=== PATIENT | female | born 1950 | race Hispanic/Latino ===

== ENCOUNTER 2020-05-03 09:31 | Inpatient (IN) | payer OTHER, MEDICARE ==
[~2020-05-03] VITALS: Ht 154.9 cm; Wt 77.7 kg
[2020-05-03] MEDS ORDERED: METHYLPREDNISOLONE SOD SUCC 40MG/ML 1ML ONE (10:13)
[2020-05-03] MEDS ORDERED: CEFTRIAXONE SODIUM 2 GM VIAL ONE (10:13)
[2020-05-03] MEDS ORDERED: SODIUM CHLORIDE 0.9% 50 ML IV ONE (10:14)
[2020-05-03] MEDS ORDERED: ACETAMINOPHEN EXTRA STRENGTH 500 MG TABLET ONE (10:14)
[2020-05-03 10:37] LABS: BASOPHILS % (AUTO) 0.2 % (0.0-5.0); HEMATOCRIT 36.4 % (36-48); LYMPHOCYTES % (AUTO) 5.1 % (21.0-51.0); MEAN CORPUSCULAR HGB CONC 32.1 g/dL (32.0-36.0); MEAN CORPUSCULAR VOLUME 83.9 fL (79-99); MONOCYTES % (AUTO) 4.2 % (3.0-13.0); NEUTROPHILS % (AUTO) 89.9 % (40.0-77.0); PLATELET COUNT (AUTO) 98 K/uL (130-400); RED BLOOD CELL COUNT(AUTO) 4.34 MIL/uL (4.00-5.50); RED CELL DISTRIBUTION WIDTH 14.6 % (11.0-15.5); WHITE BLOOD COUNT (AUTO) 6.3 K/uL (4.8-10.8)
[2020-05-03 10:47] LABS: CARBON DIOXIDE 23 mmol/L (21-32); CHLORIDE 104 mmol/L (101-111); CREATININE 0.9 mg/dL (0.5-1.5); GLOMERULAR FILTR. RATE CALC 65 mL/min (>60); GLUCOSE,RANDOM 187 mg/dL (70-105); POTASSIUM 3.9 mmol/L (3.5-5.1); SODIUM SERUM 139 mmol/L (136-145); UREA NITROGEN, BLOOD 10 mg/dL (7-18)
[2020-05-03 10:49] LABS: INR 1.01 (0.85-1.15); PARTIAL THROMBOPLASTIN TIME 31.7 SEC (26.3-35.5); PROTHROMBIN TIME 10.9 SEC (9.6-11.6)
[2020-05-03 11:08] LABS: ALANINE AMINOTRANSFERASE 29 U/L (12-78); ALBUMIN 2.8 g/dL (3.5-5.0); ASPARTATE AMINOTRANSFERASE 46 U/L (10-37); BILIRUBIN,TOTAL 0.6 mg/dL (0.2-1.0); CREATINE KINASE, TOTAL 124 U/L (21-232); MYOGLOBIN 118 ng/mL (10-92); TOTAL PROTEIN, SERUM 6.8 g/dL (6.0-8.3); TROPONIN I < 0.04 ng/mL (0.00-0.06)
[2020-05-03] MEDS ORDERED: ENOXAPARIN SODIUM 80 MG/0.8 ML SQ ONE ×2 (12:17→21:33)
[2020-05-03 15:18] LABS: APPEARANCE,URINE Cloudy (CLEAR); BILIRUBIN,URINE Negative (NEGATIVE); COLOR,URINE Yellow (YELLOW); GLUCOSE, URINE (UA) Negative (NEGATIVE); KETONES,URINE Trace mg/dL (NEGATIVE); LEUKOCYTE ESTERASE ,URINE Large (NEGATIVE); NITRATE,URINE Negative (NEGATIVE); OCCULT BLOOD,URINE Moderate (NEGATIVE); PROTEIN,URINE Trace mg/dL (NEGATIVE); UROBILINOGEN,URINE 0.2 mg/dL (0.2-1.0)
[2020-05-03 15:25] LABS: BACTERIA,URINE Few /HPF (None Seen); YEAST,URINE BUDDING Rare /HPF (None Seen)
[2020-05-03 15:26] LABS: SQUAMOUS EPITHELIAL CELL,UR Few /HPF (0-2); TRANSITIONAL EPI CELLS,URINE Few /HPF (None Seen)
[2020-05-03] MEDS ORDERED: ENOXAPARIN SODIUM 100 MG/1 ML SQ ONE (15:41)
[2020-05-03] MEDS ORDERED: IOHEXOL 350 MG/ML 100ML INFUS..BTL IV ONE (16:00)
[2020-05-03 16:10] LABS: ABG BASE EXCESS -2.7 mmol/L (-2.0-3.0); ABG HCO3 20.4 mmol/L (21.0-28.0); ABG OXYGEN SATURATION 98.1 % (95.0-99.0); ABG PCO2 31 mmHg (32-45)
[2020-05-03] MEDS ORDERED: ACETAMINOPHEN 325 MG TAB PO PRN ×2 (16:15)
[2020-05-03] MEDS ORDERED: HYDROCODONE/ACETAMINOPHEN 5/325 MG TAB PO PRN (16:15)
[2020-05-03] MEDS ORDERED: GUAIFENESIN-DM 200/20 MG 10 ML PO PRN (16:15)
[2020-05-03] MEDS ORDERED: LACTULOSE 20 GM/30 ML UDCUP PO PRN (16:15)
[2020-05-03] MEDS ORDERED: HYDRALAZINE HCL 20 MG/ML VIAL IV PRN (16:15)
[2020-05-03] MEDS ORDERED: ALPRAZOLAM 0.25 MG TABLET PO PRN (16:15)
[2020-05-03] MEDS ORDERED: METOPROLOL TARTRATE 1 MG/ML 5ML VIAL IV PRN (16:15)
[2020-05-03] MEDS: INSULIN HUMULIN R 100 UNIT/ML 3ML SQ SCH (16:30)
[2020-05-03] MEDS ORDERED: ERGOCALCIFEROL (VITAMIN D2) 50,000 UNIT CAPSULE PO SCH (20:00)
[2020-05-03] MEDS ORDERED: FUROSEMIDE 10 MG/ML 2ML VIAL IV SCH (20:00)
--- NOTE | 2020-05-03 20:17 | NUR ---
INITIAL SW spoke to patient's daughter, Mary Lou Gould, [phone]. Patient lost her spouse to COVID 19 on 04/29/2020. Patient moved in with daughter, Kimberlee Infante, [phone]. No home health but does have PHC with [facility] X 26 hours. Daughter Mary Lou is provider. DME: glucometer(insulin) rollator, cane, shower chair. Nazanin was independent prior to hospitalization and drove as per family. PCP is Dr. Lina Martinez. Pharmacy is [facility] in [place]. DCP is home. Addendum: 05/03/20 at 2020 by LEOPOLDO MARTINEZ Amended: Links added.
[2020-05-03] MEDS: FAMOTIDINE 20MG TAB 20 MG TAB PO SCH (21:00)
[2020-05-03] MEDS: ENOXAPARIN SODIUM 80 MG/0.8 ML SQ SCH (21:00)
[2020-05-03] MEDS ORDERED: FUROSEMIDE 10 MG/ML 2ML VIAL ONE (21:33)
[2020-05-03] MEDS ORDERED: FAMOTIDINE/PF 20 MG/2 ML VIAL IV ONE (21:34)
[2020-05-03] MEDS ORDERED: INSULIN HUMULIN R 100 UNIT/ML 3ML ONE (22:57)
[2020-05-04 04:36] LABS: BASOPHILS % (AUTO) 0.1 % (0.0-5.0); HEMATOCRIT 37.4 % (36-48); LYMPHOCYTES % (AUTO) 9.3 % (21.0-51.0); MEAN CORPUSCULAR HEMOGLOBIN 26.9 pg (27.0-33.0); MEAN CORPUSCULAR HGB CONC 32.1 g/dL (32.0-36.0); MEAN CORPUSCULAR VOLUME 83.9 fL (79-99); MONOCYTES % (AUTO) 3.6 % (3.0-13.0); NEUTROPHILS % (AUTO) 86.6 % (40.0-77.0); PLATELET COUNT (AUTO) 115 K/uL (130-400); RED BLOOD CELL COUNT(AUTO) 4.46 MIL/uL (4.00-5.50); RED CELL DISTRIBUTION WIDTH 14.5 % (11.0-15.5); WHITE BLOOD COUNT (AUTO) 7.2 K/uL (4.8-10.8)
[2020-05-04 04:46] LABS: POTASSIUM 3.7 mmol/L (3.5-5.1)
[2020-05-04 08:34] LABS: ABG BASE EXCESS 4.2 mmol/L (-2.0-3.0); ABG HCO3 27.9 mmol/L (21.0-28.0); ABG OXYGEN SATURATION 93.9 % (95.0-99.0); ABG PCO2 39 mmHg (32-45)
[2020-05-04] MEDS ORDERED: ENOXAPARIN SODIUM 80 MG/0.8 ML SQ ONE ×2 (08:40→22:11)
[2020-05-04] MEDS ORDERED: DEXAMETHASONE SOD PHOSPHATE 10MG/ML 1ML VIAL ONE (08:41)
[2020-05-04] MEDS ORDERED: FUROSEMIDE 10 MG/ML 2ML VIAL ONE ×2 (08:41→17:21)
[2020-05-04] MEDS ORDERED: FAMOTIDINE/PF 20 MG/2 ML VIAL IV ONE (08:42)
[2020-05-04] MEDS ORDERED: ASCORBIC ACID 500 MG TAB ONE (08:43)
[2020-05-04] MEDS ORDERED: ZINC SULFATE 220 CAPSULE ONE (08:43)
[2020-05-04] MEDS ORDERED: GUAIFENESIN-DM 200/20 MG 10 ML ONE (08:43)
[2020-05-04] MEDS: ZINC SULFATE 220 CAPSULE PO SCH (09:00)
[2020-05-04] MEDS: ASCORBIC ACID 500 MG TAB PO SCH (09:00)
[2020-05-04] MEDS: DEXAMETHASONE SOD PHOSPHATE 4 MG/ML 1ML VIAL IVP SCH (09:00)
[2020-05-04] MEDS ORDERED: INSULIN HUMULIN R 100 UNIT/ML 3ML ONE ×3 (12:25→22:12)
[2020-05-04] MEDS ORDERED: LOPERAMIDE HCL 2 MG CAP PO ONE (12:35)
[2020-05-04] MEDS ORDERED: ACETAMINOPHEN 325 MG TAB ONE (12:35)
[2020-05-04] MEDS: PHARMACY COMMUNICATION MISC SCH ×3 (12:45→20:45)
[2020-05-05] MEDS ORDERED: LOPERAMIDE HCL 2 MG CAP PO ONE (00:22)
[2020-05-05 04:43] LABS: HEMATOCRIT 38.1 % (36-48); LYMPHOCYTES % (AUTO) 11.1 % (21.0-51.0); MEAN CORPUSCULAR HEMOGLOBIN 26.9 pg (27.0-33.0); MEAN CORPUSCULAR VOLUME 84.1 fL (79-99); MONOCYTES % (AUTO) 5.2 % (3.0-13.0); NEUTROPHILS % (AUTO) 83.2 % (40.0-77.0); PLATELET COUNT (AUTO) 142 K/uL (130-400); RED BLOOD CELL COUNT(AUTO) 4.53 MIL/uL (4.00-5.50); RED CELL DISTRIBUTION WIDTH 14.2 % (11.0-15.5); WHITE BLOOD COUNT (AUTO) 5.6 K/uL (4.8-10.8)
[2020-05-05] MEDS: PHARMACY COMMUNICATION MISC SCH ×5 (04:45→20:45)
[2020-05-05 04:47] LABS: HEMOGLOBIN A1C 8.5 % (4.0-6.0)
[2020-05-05 05:00] LABS: CREATININE 0.9 mg/dL (0.5-1.5); POTASSIUM 3.8 mmol/L (3.5-5.1)
[2020-05-05] MEDS: INSULIN HUMULIN R 100 UNIT/ML 3ML SQ SCH ×2 (07:30→21:19)
[2020-05-05] MEDS: FAMOTIDINE 20MG TAB 20 MG TAB PO SCH (09:14)
[2020-05-05] MEDS: ZINC SULFATE 220 CAPSULE PO SCH (09:15)
[2020-05-05] MEDS: ASCORBIC ACID 500 MG TAB PO SCH (09:15)
[2020-05-05] MEDS: DEXAMETHASONE SOD PHOSPHATE 4 MG/ML 1ML VIAL IVP SCH (09:15)
[2020-05-05] MEDS: ENOXAPARIN SODIUM 80 MG/0.8 ML SQ SCH ×2 (09:16→21:19)
[2020-05-05] MEDS ORDERED: FAMOTIDINE 20MG TAB 20 MG TAB ONE (09:18)
[2020-05-05] MEDS ORDERED: ASCORBIC ACID 500 MG TAB ONE (09:18)
[2020-05-05] MEDS ORDERED: ZINC SULFATE 220 CAPSULE ONE (09:19)
[2020-05-05] MEDS ORDERED: DEXAMETHASONE SOD PHOSPHATE 4 MG/ML 1ML VIAL ONE (09:19)
[2020-05-05] MEDS ORDERED: ACETAMINOPHEN 325 MG TAB ONE (15:23)
[2020-05-05 20:05] VITALS: BP 105/70
[2020-05-05] MEDS ORDERED: ENOXAPARIN SODIUM 80 MG/0.8 ML SQ ONE (21:07)
[2020-05-05] MEDS ORDERED: INSULIN HUMULIN R 100 UNIT/ML 3ML ONE (21:08)
[2020-05-06] MEDS: PHARMACY COMMUNICATION MISC SCH ×2 (00:45→20:45)
[2020-05-06 01:20] VITALS: BP 146/78
--- NOTE | 2020-05-06 01:20 | NUR ---
PATIENT RECEIVED FROM ER, REPORT FROM DAISHA ROLDAN. PT IS FEMALE 70 YR OLD WITH C/O SOB AND DIARRHEA FOR ABOUT 4 DAYS. PER REPORT PATIENT WAS FOUND COVID POSITIVE. PATIENT ORIENTED TO ROOM AND ENVIRONMENT. INFORMED ABOUT SURVEILLANCE AND SHE VOICED AGREEMENT. INSTRUCTED TO CALL FOR ASSISTANCE IF NEEDED. VOICED UNDERSTANDING, WILL CONT TO MONITOR CLOSELY. Addendum: 05/06/20 at 0307 by HUBER RODRIGUEZ RN RN PATIENT IS [facility]
[2020-05-06] MEDS ORDERED: LOPE1LIQ54 PO (03:41)
[2020-05-06] MEDS ORDERED: ALEN70TA10 PO (03:41)
[2020-05-06] MEDS ORDERED: LEVO5TAB13 PO (03:41)
[2020-05-06] MEDS ORDERED: ERGO500014 PO (03:41)
[2020-05-06] MEDS ORDERED: ACET650T9 PO (03:41)
[2020-05-06] MEDS ORDERED: PANT40TA25 PO (03:41)
[2020-05-06] MEDS ORDERED: BENZ-51 PO (03:41)
[2020-05-06] MEDS ORDERED: INSLAN SQ (03:41)
[2020-05-06] MEDS ORDERED: LISI10TA7 PO (03:41)
[2020-05-06] MEDS ORDERED: ROSU10TA28 PO (03:41)
[2020-05-06] MEDS ORDERED: DOXY100C40 PO (03:41)
[2020-05-06] MEDS ORDERED: LEVO50TA11 PO (03:41)
[2020-05-06 04:00] VITALS: BP 148/72
[2020-05-06 04:40] LABS: ABG BASE EXCESS 4.6 mmol/L (-2.0-3.0); ABG HCO3 29.7 mmol/L (21.0-28.0); ABG PCO2 46 mmHg (32-45)
[2020-05-06] MEDS: INSULIN HUMULIN R 100 UNIT/ML 3ML SQ SCH ×4 (05:31→21:08)
[2020-05-06] MEDS ORDERED: ONDANSETRON HCL 4 MG/2 ML VIAL ONE (05:47)
[2020-05-06] MEDS ORDERED: ONDANSETRON HCL 4 MG/2 ML VIAL IVP ONE (06:00)
[2020-05-06 06:42] LABS: HEMATOCRIT 38.2 % (36-48); LYMPHOCYTES % (AUTO) 20.9 % (21.0-51.0); MEAN CORPUSCULAR HGB CONC 31.7 g/dL (32.0-36.0); MEAN CORPUSCULAR VOLUME 85.3 fL (79-99); MONOCYTES % (AUTO) 5.6 % (3.0-13.0); NEUTROPHILS % (AUTO) 73.1 % (40.0-77.0); PLATELET COUNT (AUTO) 150 K/uL (130-400); RED BLOOD CELL COUNT(AUTO) 4.48 MIL/uL (4.00-5.50); RED CELL DISTRIBUTION WIDTH 14.2 % (11.0-15.5); WHITE BLOOD COUNT (AUTO) 4.5 K/uL (4.8-10.8)
[2020-05-06 07:19] LABS: ALBUMIN 2.7 g/dL (3.5-5.0); BILIRUBIN,TOTAL 0.3 mg/dL (0.2-1.0); CRP QUANTITATIVE 34.6 mg/L (0.00-9.0); MAGNESIUM 2.2 mg/dL (1.80-2.40); PHOSPHORUS 3.3 mg/dL (2.5-4.9); POTASSIUM 3.8 mmol/L (3.5-5.1); TOTAL PROTEIN, SERUM 6.8 g/dL (6.0-8.3)
[2020-05-06 08:33] VITALS: BP 128/60
[2020-05-06] MEDS: ASCORBIC ACID 500 MG TAB PO SCH (10:00)
[2020-05-06] MEDS: FAMOTIDINE 20MG TAB 20 MG TAB PO SCH (10:00)
[2020-05-06] MEDS: ZINC SULFATE 220 CAPSULE PO SCH (10:00)
[2020-05-06] MEDS: DEXAMETHASONE SOD PHOSPHATE 4 MG/ML 1ML VIAL IVP SCH (10:00)
[2020-05-06] MEDS: ENOXAPARIN SODIUM 80 MG/0.8 ML SQ SCH ×2 (10:02→21:06)
--- NOTE | 2020-05-06 12:16 | NUR ---
Family notification Spoke to Mary Lou Gould and gave her an update regarding pt's condition. She had questions/concerns regarding pt having diarrhea, blood sugars, when plasma was to be given, bedbath and cell phone to be charged. Informed her the staff would be made aware of her concerns and that as per the plasma primary nurse stated it had not been ordered. Pt only on 2L of O2 via NC. Daughter very concerned due to losing father recently to COVID 19. Allowed her to voice her grief/concerns. Was very grateful for the call.
[2020-05-06 12:47] VITALS: BP 117/78
[2020-05-06] MEDS ORDERED: LOPERAMIDE HCL 2 MG CAP PO SCH (14:00)
[2020-05-06] MEDS ORDERED: LOPERAMIDE HCL 2 MG CAP PO PRN (14:00)
[2020-05-06] MEDS ORDERED: NYSTATIN-TRIAMCINOLONE CREAM 15 GM TP PRN (14:45)
[2020-05-06 15:52] VITALS: BP 123/77
[2020-05-06 20:31] VITALS: BP 120/70
[2020-05-07 00:04] VITALS: BP 106/48
--- NOTE | 2020-05-07 01:19 | NUR ---
ROUNDS PATIENT AWAKE AND ALERT IN BED. PT WATCHING TV. NO S/S OF DISTRESS. EVEN, UNLABORED RESPIRATIONS, NC @ 2 LPM, YENI WELL. BED LOCKED IN LOWEST POSITION, BED RAILS UP X2, CALL LIGHT IN HAND. WILL CONT TO MONITOR.
[2020-05-07 03:39] VITALS: BP 118/59
[2020-05-07] MEDS: PHARMACY COMMUNICATION MISC SCH ×2 (04:45→08:07)
[2020-05-07] MEDS: INSULIN HUMULIN R 100 UNIT/ML 3ML SQ SCH ×4 (05:38→21:30)
[2020-05-07 07:49] VITALS: BP 118/54
[2020-05-07] MEDS: ASCORBIC ACID 500 MG TAB PO SCH (08:06)
[2020-05-07] MEDS: ZINC SULFATE 220 CAPSULE PO SCH (08:06)
[2020-05-07] MEDS: DEXAMETHASONE SOD PHOSPHATE 4 MG/ML 1ML VIAL IVP SCH (08:06)
[2020-05-07] MEDS: FAMOTIDINE 20MG TAB 20 MG TAB PO SCH (08:06)
[2020-05-07] MEDS: ENOXAPARIN SODIUM 80 MG/0.8 ML SQ SCH ×2 (08:06→21:28)
[2020-05-07 08:29] LABS: BASOPHILS % (AUTO) 0.2 % (0.0-5.0); HEMATOCRIT 38.8 % (36-48); LYMPHOCYTES % (AUTO) 24.2 % (21.0-51.0); MEAN CORPUSCULAR HEMOGLOBIN 26.8 pg (27.0-33.0); MEAN CORPUSCULAR HGB CONC 31.2 g/dL (32.0-36.0); MEAN CORPUSCULAR VOLUME 85.8 fL (79-99); MONOCYTES % (AUTO) 7.4 % (3.0-13.0); NEUTROPHILS % (AUTO) 67.3 % (40.0-77.0); PLATELET COUNT (AUTO) 159 K/uL (130-400); RED BLOOD CELL COUNT(AUTO) 4.52 MIL/uL (4.00-5.50); RED CELL DISTRIBUTION WIDTH 14.1 % (11.0-15.5); WHITE BLOOD COUNT (AUTO) 4.3 K/uL (4.8-10.8)
[2020-05-07 08:54] LABS: ALBUMIN 2.6 g/dL (3.5-5.0); BILIRUBIN,TOTAL 0.3 mg/dL (0.2-1.0); CREATININE 0.9 mg/dL (0.5-1.5); POTASSIUM 3.6 mmol/L (3.5-5.1); TOTAL PROTEIN, SERUM 6.4 g/dL (6.0-8.3)
--- NOTE | 2020-05-07 09:00 | NUR ---
ASSESSMENT PT IS AAOX3 DENIES CP DENIES SOB DENIES NV WHILE AT REST. RESTING IN BED. AM MEDS GIVEN, CALL LIGHT WITHIN REACH.
[2020-05-07 11:10] VITALS: BP 121/66
[2020-05-07 16:10] VITALS: BP 119/53
--- NOTE | 2020-05-07 18:00 | NUR ---
STATUS NO COMPLAINTS AT THIS TIME, RESTING IN BED. REMAINS ON O2 VIA NC. CALL LIGHT WITHIN REACH.
[2020-05-07 20:00] VITALS: BP 122/58
[2020-05-08] VITALS: BP 130/63
[2020-05-08 04:00] VITALS: BP 108/52
[2020-05-08] MEDS: INSULIN HUMULIN R 100 UNIT/ML 3ML SQ SCH ×4 (06:45→21:16)
[2020-05-08] MEDS: FAMOTIDINE 20MG TAB 20 MG TAB PO SCH (07:54)
[2020-05-08] MEDS: ASCORBIC ACID 500 MG TAB PO SCH (07:54)
[2020-05-08] MEDS: ENOXAPARIN SODIUM 80 MG/0.8 ML SQ SCH ×2 (07:54→21:18)
[2020-05-08] MEDS: DEXAMETHASONE SOD PHOSPHATE 4 MG/ML 1ML VIAL IVP SCH (07:55)
[2020-05-08] MEDS: ZINC SULFATE 220 CAPSULE PO SCH (07:55)
--- NOTE | 2020-05-08 08:30 | NUR ---
ASSESSMENT PT IS AAOX3 DENIES CP DENIES SOB DENIES NV WHILE AT REST. RESTING IN BED. AM MEDS GIVEN, CALL LIGHT WITHIN REACH.
[2020-05-08 10:42] VITALS: BP 115/61
[2020-05-08] MEDS ORDERED: FAMO20TA8 PO (11:25)
[2020-05-08] MEDS ORDERED: DEXA6TAB PO (11:25)
[2020-05-08] MEDS ORDERED: BENZ-51 PO (11:25)
[2020-05-08] MEDS ORDERED: APIX2.5T PO (11:25)
[2020-05-08] MEDS ORDERED: ASCO500T20 PO (11:25)
[2020-05-08] MEDS ORDERED: GUAI5SYR PO (11:25)
[2020-05-08] MEDS ORDERED: ZINC220C6 PO (11:25)
--- NOTE | 2020-05-08 11:58 | NUR ---
Patient feeling weak and shaky, unable to walk for 6 mins. exercise done on bed. Addendum: 05/08/20 at 1200 by PAULIE OSPINA Amended: Links added.
--- NOTE | 2020-05-08 12:30 | NUR ---
O2 SAT / HOME O2 EVAL WHILE AT REST SITTING UPRIGHT IN CHAIR O2 SAT ON ROOM AIR MID 90S, WHILE AMBULATING WITH PHYSICAL THERAPY ON ROOM AIR O2 SAT DROPPED TO 76%, PLACED BACK ON O2 2LPM, O2 SAT REGAINED TO MID 90S. PT AAOX3 DENIES CP DENIES NV. STATES SOME SOB ON EXERTION.
--- NOTE | 2020-05-08 13:00 | NUR ---
O2 SAT FOLLOW UP WHILE AT REST ON 2LPM SATURATIONS MID 90S%. NO COMPLAINTS. SITTING UP IN CHAIR CALL LIGHT WITHIN REACH.
[2020-05-08 16:20] VITALS: BP 108/54
--- NOTE | 2020-05-08 16:24 | NUR ---
STATUS RESTING IN BED NO COMPLAINTS. CALL LIGHT WITHIN REACH.
--- NOTE | 2020-05-08 17:30 | NUR ---
STATUS RESTING IN BED. NO COMPLAINTS AT THIS TIME, BREATHING PATTERN IS EVEN AND UNLABORED, ON O2 AT 2LPM. CALL LIGHT WITHIN REACH. Yoni CARLSON PA-C AWARE OF PENDING HOME O2 SET UP. PLAN FOR DC HOME TOMORROW ONCE HOME O2 IS ARRANGED. Yoni CARSLON SPOKE WITH FAMILY OVER THE PHONE AND GAVE THEM UPDATES.
[2020-05-08 22:01] VITALS: BP 118/49
[2020-05-09] VITALS (7 sets, daily range): BP systolic 107–135; BP diastolic 47–68
--- NOTE | 2020-05-09 05:10 | NUR ---
MARINE RIGGER PAGED PT REPORTS FEELING WEAK AND NAUSEOUS. SPOKE WITH FRANKY PACE. ORDERS PLACED IN [facility]-SEE DEC.
[2020-05-09] MEDS ORDERED: ONDANSETRON HCL 4 MG/2 ML VIAL IVP PRN (05:15)
--- NOTE | 2020-05-09 05:40 | NUR ---
oral care perfomed at bedside. pt carmen well. pt reports to having mouth sores.
[2020-05-09] MEDS: INSULIN HUMULIN R 100 UNIT/ML 3ML SQ SCH ×4 (05:44→23:06)
[2020-05-09] MEDS: METOCLOPRAMIDE 5 MG TABLET PO SCH ×4 (06:35→21:03)
[2020-05-09] MEDS: ZINC SULFATE 220 CAPSULE PO SCH (10:08)
[2020-05-09] MEDS: FAMOTIDINE 20MG TAB 20 MG TAB PO SCH (10:08)
[2020-05-09] MEDS: ASCORBIC ACID 500 MG TAB PO SCH (10:09)
[2020-05-09] MEDS: ENOXAPARIN SODIUM 80 MG/0.8 ML SQ SCH ×2 (10:09→21:05)
[2020-05-09] MEDS: DEXAMETHASONE 4 MG TAB PO SCH (10:22)
[2020-05-10 04:33] LABS: HEMATOCRIT 37.9 % (36-48); MEAN CORPUSCULAR HGB CONC 31.4 g/dL (32.0-36.0); MEAN CORPUSCULAR VOLUME 86.1 fL (79-99); PLATELET COUNT (AUTO) 174 K/uL (130-400); RED CELL DISTRIBUTION WIDTH 13.8 % (11.0-15.5); WHITE BLOOD COUNT (AUTO) 4.9 K/uL (4.8-10.8)
[2020-05-10 04:35] VITALS: BP 121/69
[2020-05-10 04:36] LABS: ALBUMIN 2.7 g/dL (3.5-5.0); BILIRUBIN,TOTAL 0.3 mg/dL (0.2-1.0); POTASSIUM 3.6 mmol/L (3.5-5.1); TOTAL PROTEIN, SERUM 6.5 g/dL (6.0-8.3)
[2020-05-10 05:44] LABS: BAND NEUTROPHILS % (MANUAL) 1 % (0-2); LYMPHOCYTES % (MANUAL) 20 % (22-44); MAN.DIFF COMMENT-IMPRESSION MANUAL DIFFERENTIAL; MONOCYTES % (MANUAL) 6 % (2-9); PLATELET MORPHOLOGY COMMENT ADEQUATE; REACTIVE LYMPHOCYTES 1 % (0-0); SEGMENTED NEUTROPHILS % 72 % (40-70)
[2020-05-10] MEDS: INSULIN HUMULIN R 100 UNIT/ML 3ML SQ SCH ×3 (05:57→16:11)
[2020-05-10] MEDS: METOCLOPRAMIDE 5 MG TABLET PO SCH ×3 (06:08→17:39)
[2020-05-10 08:00] VITALS: BP 114/73
[2020-05-10] MEDS: FAMOTIDINE 20MG TAB 20 MG TAB PO SCH (09:13)
[2020-05-10] MEDS: ASCORBIC ACID 500 MG TAB PO SCH (09:13)
[2020-05-10] MEDS: DEXAMETHASONE 4 MG TAB PO SCH (09:13)
[2020-05-10] MEDS: ENOXAPARIN SODIUM 80 MG/0.8 ML SQ SCH (09:15)
[2020-05-10] MEDS: ZINC SULFATE 220 CAPSULE PO SCH (09:15)
[2020-05-10 11:30] VITALS: BP 103/51
[2020-05-10 16:00] VITALS: BP 101/74
--- NOTE | 2020-05-10 16:41 | NUR ---
CM NOTE/DID NOT QUALIFY FOR HOME O2 PER RT REPORT OF HOME O2 EVALUATION, LOWEST 02 SATURATION WAS OF 90% ON ROOM AIR AMBULATION, DOES NOT QUALIFY FOR HOME O2. MIC ROLDAN, MADE AWARE. BAILEY STUART MANAGER FRENCH FOR [employer] MADE AWARE, OK TO DC HOME WITHOUT OXYGEN. MIC ROLDAN AWARE. DCP HOME TODAY.
== END 2020-05-10 18:35 | disposition home or self-care (01) | DRG 177 ==
LOC: EDH 09:31 → EDHIP 15:00 → 4AH 05-06 01:25
PROVIDERS: ADMIT Internal Medicine; ATTEND Internal Medicine
DX: U07.1 COVID-19 (principal); J96.01 Acute respiratory failure with hypoxia; E11.9 Type 2 diabetes mellitus without complications; I10 Essential (primary) hypertension; E78.5 Hyperlipidemia, unspecified; A08.4 Viral intestinal infection, unspecified; Z79.899 Other long term (current) drug therapy; Z79.01 Long term (current) use of anticoagulants; Z79.4 Long term (current) use of insulin
CPT/HCPCS: 36415; 36600; 71045; 71275; 80048; 80053; 81001; 82550; 82728; 82803; 82948; 83036; 83605; 83735; 83874; 84100; 84145; 84484; 85025; 85378; 85610; 85730; 86140; 86850; 86900; 86901; 87040; 87088; 93005; 93970; 94760; 97039; 99291; G0378; J0696; J1100; J1650; J1815; J1940; J2405; J2920; J3490; J8540; Q9967

== ENCOUNTER 2024-01-16 18:25 | Emergency (ER) | payer OTHER, MEDICARE ==
[~2024-01-16] VITALS: Ht 154.9 cm; Wt 80.7 kg
[~2024-01-16 18:25] MED LIST: ACET650T9 PO; ALEN70TA80 PO; APIX2.5T PO; ASCO500T20 PO; BENZ-226 PO; DEXA6TAB PO; ERGO500093 PO; FAMO20TA8 PO; GUAI5SYR PO; INSLAN SQ; LEVO50TA11 PO; LEVO5TAB13 PO; ROSU10TA28 PO; ZINC220C6 PO
[2024-01-16 22:34] VITALS: BP 154/82; PULSE 72; RESP 18; O2SAT 98
== END 2024-01-16 23:12 | disposition home or self-care (01) ==
LOC: EDH 18:25
DX: F81.81 Disorder of written expression (principal); E11.9 Type 2 diabetes mellitus without complications; I10 Essential (primary) hypertension; Z90.49 Acquired absence of other specified parts of digestive tract
CPT/HCPCS: 70450; 70490